=== PATIENT | female | born 2000 | race Caucasian/White ===

== ENCOUNTER 2019-04-12 20:08 | Emergency (ER) | payer OTHER ==
--- NOTE | 2019-04-12 20:56 | EDM.PDOC ---
ED HPI GENERAL MEDICAL PROBLEM - General Chief Complaint: Asthma Stated Complaint: SOB Time Seen by Provider: 04/12/19 20:40 Source of Information: Reports: Patient, Old Records, RN History Limitations: Reports: No Limitations - History of Present Illness INITIAL COMMENTS - FREE TEXT/NARRATIVE: 19 yo female with a pHx of asthma who is a light smoker presents with several days of mild wheezing and mild SOB associated with some pleuritic chest pain. No fever. Cough is nonproductive. Has some clear rhinorrhea. Does not own a peak flow meter. Has albuterol but it is really not helping her much. Onset: Gradual Duration: Day(s):, Waxing/Waning Location: Reports: Chest Quality: Reports: Sharp Severity: Mild Improves with: Reports: Other (shallow breathing) Worsens with: Reports: Breathing (deep) Context: Reports: Other (see HPI) Associated Symptoms: Reports: Cough, Shortness of Breath, Other (pleuritic pain in back). 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) (albuterol) - Related Data Allergies Allergy/AdvReac Type Severity Reaction Status Date / Time No Known Allergies Allergy Verified 04/12/19 20:23 Home Meds: Home Meds Albuterol Sulfate 1 ampule NEB ASDIRECTED PRN 04/12/19 [History] Albuterol [Ventolin HFA] 2 puff IN Q4H PRN 04/12/19 [History] Fluticasone/Salmeterol [Advair Hfa 230-21 Mcg Inhaler] 2 puff IN BID 04/12/19 [ History] Past Medical History HEENT History: Reports: Allergic Rhinitis Respiratory History: Reports: Asthma Neurological History: Reports: Concussion Psychiatric History: Reports: ADHD, Anxiety, Depression, Panic Attack Social & Family History - Tobacco Use Smoking Status *Q: Current Every Day Smoker Years of Tobacco use: 3 Packs/Tins Daily: 0.4 - Recreational Drug Use Recreational Drug Use: Yes Drug Use in Last 12 Months: Yes Recreational Drug Type: Reports: Marijuana/Hashish Recreational Drug Use Frequency: Weekly ED ROS GENERAL - Review of Systems Review Of Systems: See Below Constitutional: Reports: No Symptoms HEENT: Reports: Rhinitis Respiratory: Reports: Shortness of Breath, Pleuritic Chest Pain, Cough. Denies : Wheezing, Sputum, Hemoptysis Cardiovascular: Reports: No Symptoms GI/Abdominal: Reports: No Symptoms : Reports: No Symptoms Skin: Reports: No Symptoms Neurological: Reports: No Symptoms ED EXAM, GENERAL - Physical Exam Exam: See Below Exam Limited By: No Limitations General Appearance: Alert, WD/WN, No Apparent Distress Eye Exam: Bilateral Eye: Normal Inspection Ears: Normal External Exam, Normal Canal, Hearing Grossly Normal, Normal TMs Ear Exam: Bilateral Ear: Auricle Normal, Canal Normal, TM normal Nose: Normal Inspection, No Blood Throat/Mouth: Normal Inspection, Normal Lips, Normal Oropharynx, Normal Voice, No Airway Compromise Head: Atraumatic, Normocephalic Neck: Normal Inspection Respiratory/Chest: No Respiratory Distress, No Accessory Muscle Use, Wheezing ( faint). No: Accessory Muscle Use, Prolonged Expiration Cardiovascular: Regular Rate, Rhythm, No Edema Back Exam: Normal Inspection. No: CVA Tenderness (R), CVA Tenderness (L) Extremities: Normal Inspection, Normal Range of Motion, Non-Tender, No Pedal Edema Neurological: Alert, Oriented, CN II-XII Intact, Normal Cognition, No Motor/ Sensory Deficits Psychiatric: Normal Affect, Normal Mood Skin Exam: Warm, Dry, Intact, Normal Color, No Rash Course - Vital Signs Text/Narrative:: peak flow was about 70% of predicted. Last Recorded V/S: Last Vital Signs Temp 36.2 C 04/12/19 20:35 Pulse 88 04/12/19 20:35 Resp 18 04/12/19 20:35 BP 115/66 04/12/19 20:35 Pulse Ox 97 04/12/19 20:35 - Orders/Labs/Meds Orders: Active Orders 24 hr Category Date Time Status RT Peak Flow Measurement [RC] ASDIRECTED Care 04/12/19 20:50 Active Chest 2V [CR] Stat Exams 04/12/19 20:51 Taken - Radiology Interpretation Free Text/Narrative:: CXR-neg Departure - Departure Time of Disposition: 21:40 Disposition: Home, Self-Care 01 Condition: Fair Clinical Impression: Bronchospasm - Discharge Information *PRESCRIPTION DRUG MONITORING PROGRAM REVIEWED*: Not Applicable *COPY OF PRESCRIPTION DRUG MONITORING REPORT IN PATIENT GEORGINA: Not Applicable Instructions: Asthma, Adult Referrals: PCP,None [Primary Care Provider] - Forms: ED Department Discharge Additional Instructions: Use prednisone as directed. Continue use of your other asthma medications as needed. No smoking or smoke exposure. Recheck with a doctor of your choice early next week, call for an appt. Sepsis Event Note - Evaluation Sepsis Screening Result: No Definite Risk - Focused Exam Vital Signs: Vital Signs Temp Pulse Resp BP Pulse Ox 04/12/19 20:35 36.2 C 88 18 115/66 97 04/12/19 20:19 36.2 C 88 18 115/66 97 Date Exam was Performed: 04/12/19 Time Exam was Performed: 21:39 - My Orders Last 24 Hours: My Active Orders 04/12/19 20:50 RT Peak Flow Measurement [RC] ASDIRECTED 04/12/19 20:51 Chest 2V [CR] Stat - Assessment/Plan Last 24 Hours: My Active Orders 04/12/19 20:50 RT Peak Flow Measurement [RC] ASDIRECTED 04/12/19 20:51 Chest 2V [CR] Stat
--- NOTE | 2019-04-13 08:54 | CR ---
CHEST: 2 view CLINICAL HISTORY:Pleuritic chest pain, SOB COMPARISON:None FINDINGS: The heart size, pulmonary vascularity and hilar structures are normal. No infiltrate effusion or pneumothorax is seen. IMPRESSION: No acute cardiopulmonary process.
== END 2019-04-12 21:53 | disposition home or self-care (01) ==
LOC: JP.ED 20:08
DX: J98.01 Acute bronchospasm (principal); F17.210 Nicotine dependence, cigarettes, uncomplicated
CPT/HCPCS: 71046; 71046-26; 99284-25

== ENCOUNTER 2020-05-23 00:42 | Inpatient (IN) | payer OTHER ==
[2020-05-23] MEDS ORDERED: Albuterol/Ipratropium 3.0-0.5 MG/3 ML Neb Soln NEB ONE ×2 (01:00→01:44)
[2020-05-23] MEDS ORDERED: methylPREDNISolone Sodium Succinate 125 MG/2 ML SDV IM ONE (01:00)
--- NOTE | 2020-05-23 01:05 | EDM.PDOC ---
ED HPI GENERAL MEDICAL PROBLEM - General Chief Complaint: Respiratory Problem Stated Complaint: SOB Time Seen by Provider: 05/23/20 00:55 Source of Information: Reports: Patient History Limitations: Reports: No Limitations - History of Present Illness INITIAL COMMENTS - FREE TEXT/NARRATIVE: Alida is a 20-year-old female presenting to the ED for acute onset of wheezing and shortness of breath. 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 Patient states that she had onset of symptoms around 1800 hrs. today and has been using her inhaler without any improvement. Patient is on Advair and Proventil. She has not been on steroids since she had bronchitis last fall. Denies any fever, chills but has had a non-productive cough to the point of posttussive emesis. - Related Data Allergies Allergy/AdvReac Type Severity Reaction Status Date / Time No Known Allergies Allergy Verified 04/12/19 20:23 Home Meds: Home Meds Albuterol Sulfate 1 ampule NEB ASDIRECTED PRN 04/12/19 [History] Albuterol [Ventolin HFA] 2 puff IN Q4H PRN 04/12/19 [History] Fluticasone Propion/Salmeterol [Advair Hfa 230-21 Mcg Inhaler] 2 puff IN BID 04/12/19 [History] Past Medical History HEENT History: Reports: Allergic Rhinitis Respiratory History: Reports: Asthma Neurological History: Reports: Concussion Psychiatric History: Reports: ADHD, Anxiety, Depression, Panic Attack ED ROS GENERAL - Review of Systems Review Of Systems: See Below Constitutional: Reports: No Symptoms HEENT: Reports: No Symptoms Respiratory: Reports: Shortness of Breath, Wheezing, Cough, Other (Posttussive emesis) Cardiovascular: Reports: No Symptoms Endocrine: Reports: No Symptoms GI/Abdominal: Reports: Vomiting (Posttussive) : Reports: No Symptoms Musculoskeletal: Reports: No Symptoms Skin: Reports: No Symptoms Neurological: Reports: No Symptoms Psychiatric: Reports: Anxiety Hematologic/Lymphatic: Reports: No Symptoms Immunologic: Reports: Environmental Allergy (Animal dander) ED EXAM, GENERAL - Physical Exam Exam: See Below Exam Limited By: No Limitations General Appearance: Alert, Anxious, Moderate Distress Eye Exam: Bilateral Eye: EOMI, PERRL Nose: Clear Rhinorrhea Throat/Mouth: Normal Inspection, Normal Oropharynx, Normal Voice, No Airway Compromise Head: Atraumatic, Normocephalic Neck: Normal Inspection, Supple Respiratory/Chest: Decreased Breath Sounds (Moderately diminished breath sounds bilaterally), Wheezing (Scant diffuse wheezing), Accessory Muscle Use Cardiovascular: Normal Peripheral Pulses, Regular Rate, Rhythm, Tachycardia Peripheral Pulses: 2+: Radial (L), Radial (R) Back Exam: Normal Inspection Extremities: Normal Inspection Neurological: Alert, Oriented, Normal Cognition, No Motor/Sensory Deficits Psychiatric: Anxious Skin Exam: Warm, Dry Lymphatic: No Adenopathy Course - Vital Signs Last Recorded V/S: Last Vital Signs Temp 36.4 C 05/23/20 00:57 Pulse 108 H 05/23/20 00:57 Resp 22 H 05/23/20 00:57 BP 116/66 05/23/20 00:57 Pulse Ox 96 05/23/20 00:57 - Orders/Labs/Meds Orders: Active Orders 24 hr Category Date Time Status RT Aerosol Therapy [RC] ASDIRECTED Care 05/23/20 01:01 Active RT Aerosol Therapy [RC] ASDIRECTED Care 05/23/20 01:44 Active Ang Chest [CT] Stat Exams 05/23/20 Ordered Chest 2V [CR] Stat Exams 05/23/20 01:00 Taken COVID-19/FLU A+B/RSV [MOLEC] Stat Lab 05/23/20 02:21 Ordered Labs: Laboratory Tests 05/23/20 05/23/20 05/23/20 Range/Units 01:12 01:12 01:12 WBC 19.1 H (4.5-11.0) K/uL RBC 4.56 (3.30-5.50) M/uL Hgb 13.0 (12.0-15.0) g/dL Hct 38.7 (36.0-48.0) % MCV 85 (80-98) fL MCH 29 (27-31) pg MCHC 34 (32-36) % Plt Count 280 (150-400) K/uL Neut % (Auto) 79 H (36-66) % Lymph % (Auto) 9 L (24-44) % Turner % (Auto) 7 H (2-6) % Eos % (Auto) 4 (2-4) % Baso % (Auto) 0 (0-1) % PT 10.7 (9.5-12.0) sec INR 0.98 (0.80-1.20) APTT 27.2 (27.0-36.0) sec Puncture Site ABG pH (7.350-7.450) ABG pCO2 (35.0-42.0) mmHg ABG pO2 (75.0-100.0) mmHg ABG HCO3 (22.0-26.0) mmol/L ABG Total CO2 (21.0-25.0) mmol/L ABG O2 Saturation (95.0-98.0) % ABG O2 Content (15.0-23.0) %vol ABG Base Excess mm/L ABG Hemoglobin (12.0-16.0) g/dL ABG Oxyhemoglobin % ABG Carboxyhemoglobin (0.0-1.6) % ABG Methemoglobin % [employer] Test O2 Delivery Device Oxygen Flow Rate L Sodium 143 (140-148) mmol/L Potassium 4.2 (3.6-5.2) mmol/L Chloride 105 (100-108) mmol/L Carbon Dioxide 25 (21-32) mmol/L Anion Gap 13.4 (5.0-14.0) mmol/L BUN 16 (7-18) mg/dL Creatinine 0.7 (0.6-1.0) mg/dL Est Cr Clr Drug Dosing 105.16 mL/min Estimated GFR (MDRD) > 60 (>60) Glucose 98 (74-106) mg/dL Calcium 9.1 (8.5-10.1) mg/dL C-Reactive Protein 0.36 H (0.0-0.3) mg/dL 05/23/20 05/23/20 Range/Units 01:56 02:00 WBC (4.5-11.0) K/uL RBC (3.30-5.50) M/uL Hgb (12.0-15.0) g/dL Hct (36.0-48.0) % MCV (80-98) fL MCH (27-31) pg MCHC (32-36) % Plt Count (150-400) K/uL Neut % (Auto) (36-66) % Lymph % (Auto) (24-44) % Turner % (Auto) (2-6) % Eos % (Auto) (2-4) % Baso % (Auto) (0-1) % PT (9.5-12.0) sec INR (0.80-1.20) APTT (27.0-36.0) sec Puncture Site Rt radial Rt radial ABG pH 6.928 L* 6.908 L* (7.350-7.450) ABG pCO2 103.0 H* 99.7 H* (35.0-42.0) mmHg ABG pO2 40.6 L* 101.0 H (75.0-100.0) mmHg ABG HCO3 20.5 L 18.8 L (22.0-26.0) mmol/L ABG Total CO2 21.3 19.6 L (21.0-25.0) mmol/L ABG O2 Saturation 38.7 L 89.2 L (95.0-98.0) % ABG O2 Content 7.8 L 17.4 (15.0-23.0) %vol ABG Base Excess -16.0 -17.5 mm/L ABG Hemoglobin 14.4 13.9 (12.0-16.0) g/dL ABG Oxyhemoglobin 38.3 88.8 % ABG Carboxyhemoglobin < 0.5 < 0.5 (0.0-1.6) % ABG Methemoglobin 0.9 0.7 % [employer] Test Pass Pass O2 Delivery Device Room air Resuscitation bag Oxygen Flow Rate L Sodium (140-148) mmol/L Potassium (3.6-5.2) mmol/L Chloride (100-108) mmol/L Carbon Dioxide (21-32) mmol/L Anion Gap (5.0-14.0) mmol/L BUN (7-18) mg/dL Creatinine (0.6-1.0) mg/dL Est Cr Clr Drug Dosing mL/min Estimated GFR (MDRD) (>60) Glucose (74-106) mg/dL Calcium (8.5-10.1) mg/dL C-Reactive Protein (0.0-0.3) mg/dL Meds: Medications Discontinued Medications Generic Name Dose Route Start Last Admin Trade Name Freq PRN Reason Stop Dose Admin Albuterol/Ipratropium 3 ml 05/23/20 01:00 05/23/20 01:11 Albuterol/Ipratropium 3.0-0.5 Mg/3 Ml Neb Soln NEB 04/08/21 01:01 3 ml ONETIME ONE Administration Albuterol/Ipratropium 3 ml 05/23/20 01:44 Albuterol/Ipratropium 3.0-0.5 Mg/3 Ml Neb Soln NEB 05/23/20 01:45 ONETIME ONE Diphenhydramine HCl 50 mg 05/23/20 02:39 Diphenhydramine 50 Mg/Ml Sdv IVPUSH 05/23/20 02:40 ONETIME ONE Lidocaine HCl/Dextrose Confirm 05/23/20 02:05 Lidocaine 2 Gm/D5w 500 Ml Administered 05/23/20 02:06 Dose 2 gm in 500 mls @ as directed .ROUTE .STK-MED ONE Sodium Chloride 100 mls @ 4 mls/sec 05/23/20 02:12 05/23/20 02:39 Normal Saline IV 05/23/20 02:13 4 mls/sec ASDIRECTED STA Administration Iopamidol 100 ml 05/23/20 02:12 05/23/20 02:39 Iopamidol 755 Mg/Ml 100 Ml Bottle IV 05/23/20 02:13 100 ml . DIRECTED STA Administration Lidocaine HCl Confirm 05/23/20 02:04 Lidocaine 4% Top Soln 50 Ml Bottle Administered 05/23/20 02:05 Dose 50 ml .ROUTE .STK-MED ONE Lidocaine HCl Confirm 05/23/20 02:06 Lidocaine 4% 5 Ml Amp Administered 05/23/20 02:07 Dose 5 ml .ROUTE .STK-MED ONE Lidocaine HCl Confirm 05/23/20 02:07 Lidocaine 2% 20 Ml Mdv Administered 05/23/20 02:08 Dose 20 ml .ROUTE .STK-MED ONE Lorazepam 1 mg 05/23/20 01:44 Lorazepam 1 Mg Tab PO 05/23/20 01:45 ONETIME ONE Methylprednisolone Sodium Succinate 125 mg 05/23/20 01:00 05/23/20 01:11 Methylprednisolone Sodium Succinate 125 Mg/2 Ml Sdv IM 05/23/20 01:01 125 mg ONETIME ONE Administration Ondansetron HCl 4 mg 05/23/20 01:37 Ondansetron 4 Mg Tab.Dis PO 05/23/20 01:38 ONETIME ONE Rocuronium [place] Confirm 05/23/20 01:58 Rocuronium 50 Mg/5 Ml Vial Administered 05/23/20 01:59 Dose 50 mg .ROUTE .STK-MED ONE Sodium Chloride Confirm 05/23/20 02:10 Sodium Chloride 0.9% Inhalation Soln 3 Ml Neb Administered 05/23/20 02:11 Dose 15 ml .ROUTE .STK-MED ONE - Radiology Interpretation Free Text/Narrative:: I reviewed the two-view chest x-ray which is unremarkable for any acute infiltrates. I reviewed the report on the CT angiogram of the chest which was unfortunately nondiagnostic due to poor opacification of the pulmonary artery, however, there was either atelectasis or infiltrate in the lingula in the left lower lobe. - Re-Assessments/Exams Free Text/Narrative Re-Assessment/Exam: 05/23/2020 00:58 patient presents with acute onset of dyspnea with a history of asthma secondary to either exercise-induced or animal dander. Her symptoms started at 1800 hrs. tonight. We started with a DuoNeb and Solu-Medrol 125 mg IM. We will get a chest x-ray two-view and CBC, CRP, and basic metabolic profile. 05/23/20 01:41 patient is becoming acutely more dyspneic in xray and is coughing with vomiting. She is complaining that she cannot breathe. She is starting to become cyanotic. On auscultation she is moving very little air. In addition she is becoming increasingly agitated and combative. 05/23/20 01:51 we started to assist the patient with [id number] resp irations. Patient is on high flow oxygen via nasal cannula and is getting a DuoNeb stacked with an SPO2 of 22% on high flow oxygen. Time we called a code to get more bodies down to the emergency room. We are anticipating the need for RSI as the patient is becoming more agitated and unresponsive. Such from a DuoNeb to lidocaine 4% nebulized and high flow nasal cannula at 15 L/min. An blood gas was obtained showing a pH of 6.9 with a PCO2 of 103 and a PO2 of 41. Thinking that this may have been a venous stick was repeated with the similar results with the PCO2 of 99.4 and the PO2 was up to 101 because of [id number] ventilation on high flow oxygen. Again we prepared to RSI the patient, however, she started to improve both with her oxygenation and mentation on the lidocaine 4% nebulized treatment. She also started to move much more air and had improvement in both her heart rate and her blood pressure. The concern is possibility of a pulmonary embolism so we proceeded with a CT of the chest with contrast. Again because of the improvement we did not RSI or intubate the patient. She is currently doing somewhat better with audible wheezes now and improved SPO2. We will repeat the ABG at this time. 05/23/20 02:37 I was notified by nursing that the patient now has a urticarial type rash on the chest and abdomen. This is likely stress-induced or cholinergic in nature. She was given diphenhydramine 50 mg IV push. 05/23/20 03:00 I discussed the case with Dr. Ribeiro who believes that with the turnaround, the patient probably does not need to be in the unit but does agree with hospitalization. I talked with Annia Epperson CNP who will arrange for admission of the patient for further care. 05/23/20 03:11 Covid test, RSV, and influenza tests are negative. 05/23/20 03:13 repeat ABG has significantly improved with a pH of 7.38, PCO2 of 35, PO2 of 94 and a bicarb of 20.4. This was on 8 L nasal cannula. Departure - Departure Time of Disposition: 03:14 Disposition: Admitted As Inpatient 65 Condition: Serious Clinical Impression: Bronchopneumonia Status asthmaticus Qualifiers: Asthma severity: severe Asthma persistence: persistent Qualified Code(s): J45.52 - Severe persistent asthma with status asthmaticus - Discharge Information Referrals: PCP,None [Primary Care Provider] - Forms: ED Department Discharge Critical Care Note - Critical Care Note Total Time (mins): 30 Comments: Critical care time of 30 minutes in management of acute respiratory failure with hypoxia and hypercapnia, excluding procedures. Sepsis Event Note (ED) - Evaluation Sepsis Screening Result: No Definite Risk - Focused Exam Vital Signs: Vital Signs Temp Pulse Resp BP Pulse Ox 05/23/20 00:57 36.4 C 108 H 22 H 116/66 96 - Problem List & Annotations (1) Status asthmaticus SNOMED Code(s): 906010042 Code(s): J45.902 - UNSPECIFIED ASTHMA WITH STATUS ASTHMATICUS Status: Acute Current Visit: Yes Qualifiers: Asthma severity: severe Asthma persistence: persistent Qualified Code(s): J45.52 - Severe persistent asthma with status asthmaticus (2) Bronchopneumonia SNOMED Code(s): 552007567 Code(s): J18.0 - BRONCHOPNEUMONIA, UNSPECIFIED ORGANISM Status: Acute Priority: High Current Visit: Yes - Problem List Review Problem List Initiated/Reviewed/Updated: Yes - My Orders Last 24 Hours: My Active Orders 05/23/20 Ang Chest [CT] Stat 05/23/20 01:00 Chest 2V [CR] Stat 05/23/20 01:01 RT Aerosol Therapy [RC] ASDIRECTED 05/23/20 01:44 RT Aerosol Therapy [RC] ASDIRECTED 05/23/20 02:21 COVID-19/FLU A+B/RSV [MOLEC] Stat - Assessment/Plan Last 24 Hours: My Active Orders 05/23/20 Ang Chest [CT] Stat 05/23/20 01:00 Chest 2V [CR] Stat 05/23/20 01:01 RT Aerosol Therapy [RC] ASDIRECTED 05/23/20 01:44 RT Aerosol Therapy [RC] ASDIRECTED 05/23/20 02:21 COVID-19/FLU A+B/RSV [MOLEC] Stat
[2020-05-23] MEDS ORDERED: Ondansetron 4 MG Tab.DIS PO ONE (01:37)
[2020-05-23] MEDS ORDERED: LORazepam 1 MG Tab PO ONE (01:44)
[2020-05-23] MEDS ORDERED: Rocuronium 50 MG/5 ML Vial ONE (01:58)
[2020-05-23] MEDS ORDERED: Lidocaine 4% Top Soln 50 ML Bottle ONE (02:04)
[2020-05-23] MEDS ORDERED: LIDOCAINE ONE (02:05)
[2020-05-23] MEDS ORDERED: [UNRECOGNIZED DRUG - OTHER] ONE (02:05)
[2020-05-23] MEDS ORDERED: Lidocaine 4% 5 ML Amp ONE (02:06)
[2020-05-23] MEDS ORDERED: Lidocaine 2% 20 ML MDV ONE (02:07)
[2020-05-23] MEDS ORDERED: Sodium Chloride 0.9% Inhalation Soln 3 ML Neb ONE (02:10)
[2020-05-23] MEDS ORDERED: Sodium Chloride 0.9% 100 ML IV STA (02:12)
[2020-05-23] MEDS ORDERED: Iopamidol 755 Mg/ML 100 ML Bottle IV STA (02:12)
[2020-05-23] MEDS ORDERED: diphenhydrAMINE 50 MG/ML SDV IVPUSH ONE (02:39)
[2020-05-23] MEDS ORDERED: diphenhydrAMINE 50 MG/ML SDV ONE (02:40)
[2020-05-23 03:02] LABS: CORONAVIRUS COVID-19 NAA NEGATIVE (NEGATIVE)
--- NOTE | 2020-05-23 03:11 | CRLCT ---
INDICATION: Shortness of breath and respiratory distress. TECHNIQUE: CT chest PE was acquired with 100 cc Isovue 370 intravenous contrast. COMPARISON: None. FINDINGS: Heart and vasculature: Nondiagnostic evaluation. Inadequate opacification of the pulmonary vasculature centrally and in the upper lobes some improved opacification within the lower lobes the pulmonary vasculature appears unremarkable at no pericardial effusion. Thoracic aorta normal in caliber. This level. Lungs and pleural: No pleural effusion or pneumothorax. Mild ground-glass opacity within the lingula. Lymph nodes/mediastinum: No mediastinal, hilar, or axillary adenopathy. Chest wall: No masses. Upper abdomen: Normal. Bones: Unremarkable for age. IMPRESSION: 1. Nondiagnostic evaluation for the detection of pulmonary emboli secondary to breathing during the examination. However, contrast bolus is adequate at the level of the bilateral lower lobes and no emboli are identified within these areas. 2. Mild ground-glass opacity within the lingula. This is nonspecific and the differential is broad including subsegmental atelectasis, pneumonitis or viral pneumonia. Please note that all CT scans at this facility use dose modulation, iterative reconstruction, and/or weight-based dosing when appropriate to reduce radiation dose to as low as reasonably achievable. Dictated by Calvin Aponte MD @ May 23 2020 3:05AM Signed by Dr. Calvin Aponte @ May 23 2020 3:10AM
[2020-05-23] MEDS ORDERED: Levofloxacin/Dextrose 5%-Water 750 MG in Premix Bag 1 BAG IV ONE (03:17)
[2020-05-23] MEDS ORDERED: Lidocaine 4% 5 ML Amp NEB ONE (03:21)
[2020-05-23] MEDS ORDERED: Sodium Chloride 0.9% Inhalation Soln 3 ML Neb INH ONE (03:23)
[2020-05-23] MEDS ORDERED: Sodium Chloride 0.9% 1,000 ML IV SCH (04:09)
[2020-05-23] MEDS ORDERED: Albuterol 0.083% 2.5 MG/3 ML Neb Soln NEB PRN (04:09)
[2020-05-23] MEDS ORDERED: Acetaminophen 325 MG Tab PO PRN (04:09)
[2020-05-23] MEDS ORDERED: diphenhydrAMINE 25 MG Cap PO PRN (04:09)
[2020-05-23] MEDS ORDERED: Ondansetron 4 MG Tab.DIS PO PRN (04:09)
[2020-05-23] MEDS ORDERED: Morphine 2 MG/ML SYRINGE IVPUSH PRN (04:09)
[2020-05-23] MEDS ORDERED: Ondansetron 4 MG/2 ML SDV IV PRN (04:09)
[2020-05-23] MEDS ORDERED: LORazepam 2 MG/ML SDV IV PRN (04:09)
[2020-05-23] MEDS ORDERED: Docusate Sodium 100 MG Cap PO PRN (04:09)
[2020-05-23] MEDS ORDERED: oxyCODONE 5 MG Tab PO PRN (04:09)
--- NOTE | 2020-05-23 04:42 | PCM.HP.2 ---
H&P History of Present Illness - General Date of Service: 05/23/20 Admit Problem/Dx: Admission Diagnosis/Problem Admission Diagnosis/Problem Asthma with status asthmaticus Source of Information: Patient History Limitations: Reports: No Limitations - History of Present Illness Initial Comments - Free Text/Narative: chief complaint: shortness of breath- asthma attack Alida is a 20-year-old female presenting to the ED for acute onset of wheezing and shortness of breath. 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 Patient states that she had onset of symptoms around 1800 hrs. today and has been using her inhaler without any improvement. Patient is on Advair and Proventil. She has not been on steroids since she had bronchitis last fall. Denies any fever, chills but has had a non-productive cough to the point of posttussive emesis. Onset of Symptoms: Reports: Today Symptom Onset Date: 05/22/20 Symptom Onset Time: 18:00 Duration of Symptoms: Reports: Constant, Getting Worse, Other (all respiratory symptoms resolved prior to admission) Location: Reports: Chest Quality: Reports: Same as Previous Episode (had similar asthma attack last January- but not as bad as today) Severity: Severe Improves with: Reports: Medication Worsens with: Reports: None Associated Symptoms: Reports: Cough, Nausea/Vomiting - Related Data Allergies/Adverse Reactions: Allergies Allergy/AdvReac Type Severity Reaction Status Date / Time No Known Allergies Allergy Verified 04/12/19 20:23 Home Medications: Home Meds Albuterol Sulfate 1 ampule NEB ASDIRECTED PRN 04/12/19 [History] Albuterol [Ventolin HFA] 2 puff IN Q4H PRN 04/12/19 [History] Fluticasone Propion/Salmeterol [Advair Hfa 230-21 Mcg Inhaler] 2 puff IN BID 04/12/19 [History] Past Medical History HEENT History: Reports: Allergic Rhinitis Respiratory History: Reports: Asthma Neurological History: Reports: Concussion Psychiatric History: Reports: ADHD, Anxiety, Depression, Panic Attack - Infectious Disease History Infectious Disease History: Reports: None Social & Family History - Tobacco Use Tobacco Use Status *Q: Current Every Day Tobacco User Years of Tobacco use: 3 Packs/Tins Daily: 1 Second Hand Smoke Exposure: Yes - Caffeine Use Caffeine Use: Reports: Coffee, Energy Drinks, Soda, Tea - Recreational Drug Use Recreational Drug Use: Yes Recreational Drug Type: Reports: Marijuana/Hashish - Living Situation & Occupation Living situation: Reports: Single, with Significant Other Occupation: Employed (lives in [place], [place]. with her Boyfriend. 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) H&P Review of Systems - Review of Systems: Review Of Systems: See Below General: Reports: No Symptoms, Other (now reports feeling pretty good, no concerns with breathing, cough or chest tightness) HEENT: Reports: No Symptoms Pulmonary: Reports: Shortness of Breath (in ER-now has resolved) Cardiovascular: Reports: No Symptoms Gastrointestinal: Reports: No Symptoms Genitourinary: Reports: No Symptoms Skin: Reports: No Symptoms Psychiatric: Reports: No Symptoms Neurological: Reports: No Symptoms Hematologic/Lymphatic: Reports: No Symptoms Immunologic: Reports: Other (animal dander- has 3 dogs and a snake) Exam - Exam Exam: See Below - Vital Signs Vital Signs: Last Vital Signs Temp 97.6 F 05/23/20 00:57 Pulse 122 H 05/23/20 03:51 Resp 14 05/23/20 03:51 BP 97/55 L 05/23/20 03:51 Pulse Ox 99 05/23/20 03:51 Weight: 211 lb 11.2 oz - Exam General: Alert, Oriented, Cooperative, Other (neat and well groomed, talkative, pleasant) HEENT: PERRLA, Hearing Intact, Mucosa Moist & [place], Nares Patent, Normal Nasal Septum, Posterior Pharynx Clear, Conjunctiva Clear, EOMI, EACs Clear, TMs Clear Neck: Supple, Trachea Midline, 2 Lungs: Clear to Auscultation, Normal Respiratory Effort Cardiovascular: Regular Rate, Regular Rhythm GI/Abdominal Exam: Normal Bowel Sounds, Soft, Non-Tender, No Organomegaly, No Distention, No Abnormal Bruit, No Mass, Pelvis Stable (Female) Exam: Deferred Rectal (Female) Exam: Deferred Back Exam: Normal Inspection, Full Range of Motion, NT Extremities: Normal Inspection, Normal Range of Motion, Non-Tender, No Pedal Edema, Normal Capillary Refill Skin: Warm, Dry, Intact Neurological: Cranial Nerves Intact, Reflexes Equal Bilateral Neuro Extensive - Mental Status: Alert, Oriented x3, Normal Mood/Affect, Normal Cognition Neuro Extensive - Motor, Sensory, Reflexes: CN II-XII Intact, Normal Gait, Normal Reflexes Psychiatric: Alert, Normal Affect, Normal Mood - Patient Data Lab Results Last 24 hrs: Laboratory Results - last 24 hr 05/23/20 05/23/20 05/23/20 Range/Units 01:12 01:12 01:12 WBC 19.1 H (4.5-11.0) K/uL RBC 4.56 (3.30-5.50) M/uL Hgb 13.0 (12.0-15.0) g/dL Hct 38.7 (36.0-48.0) % MCV 85 (80-98) fL MCH 29 (27-31) pg MCHC 34 (32-36) % Plt Count 280 (150-400) K/uL Neut % (Auto) 79 H (36-66) % Lymph % (Auto) 9 L (24-44) % Frontier % (Auto) 7 H (2-6) % Eos % (Auto) 4 (2-4) % Baso % (Auto) 0 (0-1) % PT 10.7 (9.5-12.0) sec INR 0.98 (0.80-1.20) APTT 27.2 (27.0-36.0) sec Puncture Site ABG pH (7.350-7.450) ABG pCO2 (35.0-42.0) mmHg ABG pO2 (75.0-100.0) mmHg ABG HCO3 (22.0-26.0) mmol/L ABG Total CO2 (21.0-25.0) mmol/L ABG O2 Saturation (95.0-98.0) % ABG O2 Content (15.0-23.0) %vol ABG Base Excess mm/L ABG Hemoglobin (12.0-16.0) g/dL ABG Oxyhemoglobin % ABG Carboxyhemoglobin (0.0-1.6) % ABG Methemoglobin % Isrrael Test O2 Delivery Device Oxygen Flow Rate L Sodium 143 (140-148) mmol/L Potassium 4.2 (3.6-5.2) mmol/L Chloride 105 (100-108) mmol/L Carbon Dioxide 25 (21-32) mmol/L Anion Gap 13.4 (5.0-14.0) mmol/L BUN 16 (7-18) mg/dL Creatinine 0.7 (0.6-1.0) mg/dL Est Cr Clr Drug Dosing 105.16 mL/min Estimated GFR (MDRD) > 60 (>60) Glucose 98 (74-106) mg/dL Calcium 9.1 (8.5-10.1) mg/dL C-Reactive Protein 0.36 H (0.0-0.3) mg/dL Influenza Type A RNA (NEGATIVE) RSV RNA (INAAT) (NEGATIVE) Influenza Type B RNA (NEGATIVE) SARS-CoV-2 RNA (JAYDA) (NEGATIVE) 05/23/20 05/23/20 05/23/20 Range/Units 01:56 02:00 02:21 WBC (4.5-11.0) K/uL RBC (3.30-5.50) M/uL Hgb (12.0-15.0) g/dL Hct (36.0-48.0) % MCV (80-98) fL MCH (27-31) pg MCHC (32-36) % Plt Count (150-400) K/uL Neut % (Auto) (36-66) % Lymph % (Auto) (24-44) % Frontier % (Auto) (2-6) % Eos % (Auto) (2-4) % Baso % (Auto) (0-1) % PT (9.5-12.0) sec INR (0.80-1.20) APTT (27.0-36.0) sec Puncture Site Rt radial Rt radial ABG pH 6.928 L* 6.908 L* (7.350-7.450) ABG pCO2 103.0 H* 99.7 H* (35.0-42.0) mmHg ABG pO2 40.6 L* 101.0 H (75.0-100.0) mmHg ABG HCO3 20.5 L 18.8 L (22.0-26.0) mmol/L ABG Total CO2 21.3 19.6 L (21.0-25.0) mmol/L ABG O2 Saturation 38.7 L 89.2 L (95.0-98.0) % ABG O2 Content 7.8 L 17.4 (15.0-23.0) %vol ABG Base Excess -16.0 -17.5 mm/L ABG Hemoglobin 14.4 13.9 (12.0-16.0) g/dL ABG Oxyhemoglobin 38.3 88.8 % ABG Carboxyhemoglobin < 0.5 < 0.5 (0.0-1.6) % ABG Methemoglobin 0.9 0.7 % Isrrael Test Pass Pass O2 Delivery Device Room air Resuscitation bag Oxygen Flow Rate L Sodium (140-148) mmol/L Potassium (3.6-5.2) mmol/L Chloride (100-108) mmol/L Carbon Dioxide (21-32) mmol/L Anion Gap (5.0-14.0) mmol/L BUN (7-18) mg/dL Creatinine (0.6-1.0) mg/dL Est Cr Clr Drug Dosing mL/min Estimated GFR (MDRD) (>60) Glucose (74-106) mg/dL Calcium (8.5-10.1) mg/dL C-Reactive Protein (0.0-0.3) mg/dL Influenza Type A RNA Negative (NEGATIVE) RSV RNA (INAAT) Negative (NEGATIVE) Influenza Type B RNA Negative (NEGATIVE) SARS-CoV-2 RNA (JAYDA) Negative (NEGATIVE) 05/23/20 Range/Units 03:07 WBC (4.5-11.0) K/uL RBC (3.30-5.50) M/uL Hgb (12.0-15.0) g/dL Hct (36.0-48.0) % MCV (80-98) fL MCH (27-31) pg MCHC (32-36) % Plt Count (150-400) K/uL Neut % (Auto) (36-66) % Lymph % (Auto) (24-44) % Frontier % (Auto) (2-6) % Eos % (Auto) (2-4) % Baso % (Auto) (0-1) % PT (9.5-12.0) sec INR (0.80-1.20) APTT (27.0-36.0) sec Puncture Site Rt radial ABG pH 7.384 (7.350-7.450) ABG pCO2 35.0 (35.0-42.0) mmHg ABG pO2 94.0 (75.0-100.0) mmHg ABG HCO3 20.4 L (22.0-26.0) mmol/L ABG Total CO2 18.4 L (21.0-25.0) mmol/L ABG O2 Saturation 96.9 (95.0-98.0) % ABG O2 Content 17.2 (15.0-23.0) %vol ABG Base Excess -3.5 mm/L ABG Hemoglobin 12.7 (12.0-16.0) g/dL ABG Oxyhemoglobin 95.6 % ABG Carboxyhemoglobin 0.7 (0.0-1.6) % ABG Methemoglobin 0.6 % Isrrael Test Pass O2 Delivery Device Hi flow nasal cannu Oxygen Flow Rate 10.0 L Sodium (140-148) mmol/L Potassium (3.6-5.2) mmol/L Chloride (100-108) mmol/L Carbon Dioxide (21-32) mmol/L Anion Gap (5.0-14.0) mmol/L BUN (7-18) mg/dL Creatinine (0.6-1.0) mg/dL Est Cr Clr Drug Dosing mL/min Estimated GFR (MDRD) (>60) Glucose (74-106) mg/dL Calcium (8.5-10.1) mg/dL C-Reactive Protein (0.0-0.3) mg/dL Influenza Type A RNA (NEGATIVE) RSV RNA (INAAT) (NEGATIVE) Influenza Type B RNA (NEGATIVE) SARS-CoV-2 RNA (JAYDA) (NEGATIVE) Result Diagrams: 05/23/20 01:12 05/23/20 01:12 Sepsis Event Note - Evaluation Sepsis Screening Result: Sepsis Risk - Focused Exam Vital Signs: Vital Signs Temp Pulse Resp BP Pulse Ox 05/23/20 03:51 122 H 14 97/55 L 99 05/23/20 02:42 122 H 18 114/57 L 99 05/23/20 00:57 97.6 F 108 H 22 H 116/66 96 - Problem List (1) Status asthmaticus SNOMED Code(s): 082348283 ICD Code: J45.902 - UNSPECIFIED ASTHMA WITH STATUS ASTHMATICUS Status: Acute Priority: High Current Visit: Yes Qualifiers: Asthma severity: severe Asthma persistence: persistent Qualified Code(s): J45.52 - Severe persistent asthma with status asthmaticus (2) Bronchopneumonia SNOMED Code(s): 125283045 ICD Code: J18.0 - BRONCHOPNEUMONIA, UNSPECIFIED ORGANISM Status: Acute Priority: High Current Visit: Yes (3) Vaping nicotine dependence, tobacco product SNOMED Code(s): 80510631, 983161385, 115240254, 647538771 ICD Code: F17.290 - NICOTINE DEPENDENCE, OTHER TOBACCO PRODUCT, UNCOMPLICATED Status: Acute Priority: High Current Visit: Yes Problem List Initiated/Reviewed/Updated: Yes Orders Last 24hrs: Active Orders 24 hr Category Date Time Status Ambulate [RC] QID Care 05/23/20 04:09 Active Intake and Output [RC] QSHIFT Care 05/23/20 04:09 Active Notify Provider Vital Signs [RC] ASDIRECTED Care 05/23/20 04:09 Active Oxygen Therapy [RC] PRN Care 05/23/20 04:09 Active Pulse Oximetry [RC] CONTINUOUS Care 05/23/20 04:09 Active RT Aerosol Therapy [RC] ASDIRECTED Care 05/23/20 04:09 Active Up ad [place] [RC] ASDIRECTED Care 05/23/20 04:09 Active VTE/DVT Education [RC] Per Unit Routine Care 05/23/20 04:09 Active Vital Signs [RC] Q4H Care 05/23/20 04:09 Active Regular Diet [DIET] Diet 05/23/20 Breakfast Active Chest 2V [CR] Stat Exams 05/23/20 01:00 Taken HCG QUALITATIVE,URINE [URCHEM] Urgent Lab 05/23/20 04:09 Ordered UA W/MICROSCOPIC [URIN] Urgent Lab 05/23/20 04:09 Ordered Acetaminophen [TylenoL] Med 05/23/20 04:09 Active 650 mg PO Q4H PRN Albuterol [Proventil Neb Soln] Med 05/23/20 04:09 Active 2.5 mg NEB Q4H PRN Albuterol/Ipratropium [DuoNeb 3.0-0.5 MG/3 ML] Med 05/23/20 06:00 Active 3 ml NEB QID Docusate Sodium [Colace] Med 05/23/20 04:09 Active 100 mg PO BID PRN LORazepam [Ativan] Med 05/23/20 04:09 Active 1 mg IV Q6H PRN Levofloxacin/Dextrose 5%-Water [Levaquin in D5W 500 MG/ Med 05/23/20 21:00 Active 100 ML] 500 mg Premix Bag 1 bag IV Q24H Levofloxacin/Dextrose 5%-Water [Levaquin in D5W 750 MG/ Med 05/23/20 03:17 Active 150 ML] 750 mg Premix Bag 1 bag IV ONETIME Morphine Med 05/23/20 04:09 Active 2 mg IVPUSH Q2H PRN Nicotine [Habitrol] Med 05/23/20 09:00 Active 14 mg TRDERM DAILY Ondansetron [Zofran ODT] Med 05/23/20 04:09 Active 4 mg PO Q6H PRN Ondansetron [Zofran] Med 05/23/20 04:09 Active 4 mg IV Q4H PRN Sodium Chloride 0.9% [Normal Saline] 1,000 ml Med 05/23/20 04:09 Active IV ASDIRECTED diphenhydrAMINE [Benadryl] Med 05/23/20 04:09 Active 25 mg PO BEDTIME PRN methylPREDNISolone Sod Succ [Solu-MEDROL] Med 05/23/20 06:00 Active 40 mg IVPUSH Q6H oxyCODONE Med 05/23/20 04:09 Active 5 mg PO Q4H PRN Resuscitation Status Routine Resus Stat 05/23/20 03:54 Ordered Medication Orders Acetaminophen (Acetaminophen 325 Mg Tab) 650 mg PO Q4H PRN PRN Reason: Pain (Mild 1-3)/fever Albuterol (Albuterol 0.083% 2.5 Mg/3 Ml Neb Soln) 2.5 mg NEB Q4H PRN PRN Reason: Shortness Of Breath/wheezing Albuterol/Ipratropium (Albuterol/Ipratropium 3.0-0.5 Mg/3 Ml Neb Soln) 3 ml NEB QID JOSEPH Diphenhydramine HCl (Diphenhydramine 25 Mg Cap) 25 mg PO BEDTIME PRN PRN Reason: Insomnia Docusate Sodium (Docusate Sodium 100 Mg Cap) 100 mg PO BID PRN PRN Reason: Constipation Levofloxacin/Dextrose 750 mg/ (Premix) 150 mls @ 100 mls/hr IV ONETIME ONE Stop: 05/23/20 04:46 Last Admin: 05/23/20 03:21 Dose: 100 mls/hr Documented by: CAM Levofloxacin/Dextrose 500 mg/ (Premix) 100 mls @ 100 mls/hr IV Q24H [facility] Sodium Chloride (Normal Saline) 1,000 mls @ 125 mls/hr IV ASDIRECTED [facility] Lorazepam (Lorazepam 2 Mg/Ml Sdv) 1 mg IV Q6H PRN PRN Reason: Nausea/Vomiting Methylprednisolone Sodium Succinate (Methylprednisolone Sodium Succinate 40 Mg/1 Ml Sdv) 40 mg IVPUSH Q6H JOSEPH Morphine Sulfate (Morphine 2 Mg/Ml Syringe) 2 mg IVPUSH Q2H PRN PRN Reason: Pain (severe 7-10) Nicotine (Nicotine 14 Mg/24 Hr Patch) 14 mg TRDERM DAILY JOSEPH Ondansetron HCl (Ondansetron 4 Mg Tab.Dis) 4 mg PO Q6H PRN PRN Reason: Nausea able to take PO Ondansetron HCl (Ondansetron 4 Mg/2 Ml Sdv) 4 mg IV Q4H PRN PRN Reason: Nausea/Vomiting Oxycodone HCl (Oxycodone 5 Mg Tab) 5 mg PO Q4H PRN PRN Reason: Pain (moderate 4-6) Assessment/Plan Comment:: ASSESSMENT AND PLAN ; asthma exacerbation and pneumonia. This is a 20 year old female who present to the ER at 12:45 this morning. She reports an asthma attack started at 6 pm this evening, her breathing has gotten progressively worse, while in the ER, Alida had acute onset respiratory failure with oxygen sat at 22% and was cyanotic and unresponsive. Aggressive respiratory treatments given bag valve mask, back to back nebulizer, Lidocaine 4% nebulizer and her symptom improved before RSI could be completed. Upon admission her symptoms have resolved and she reports she is feeling pretty good. no complaints at this time. Oxygen sat 95% on room air. ASTHMA EXACERBATION -Albuteral Nebulizer therapy as needed -Duo-nebs scheduled every 6 hours -Supplemental oxygen as needed -Solu-Medrol 40 mg IV every 8 hours -IV fluids for hydration Normal Saline 125 ml/hr. PNEUMONIA-. -Antibiotic coverage with IV Levaquin 500 mg daily -Supplement oxygen as needed -Symptomatic management of cough Tobacco use- discussed quitting vaping -Nicotine patch 21 mg daily Maintenance issues - - DVT prophylaxis -ambulate - GI prophylaxis -PPI - Nutrition -regular - Amaya catheter -not indicated CODE STATUS -FULL Admission justification -this patient will be admitted for inpatient services and is medically appropriate meeting medical necessity for inpatient admission as outlined in my documentation. I reasonably expect the patient will require inpatient services that span a period time over 2 midnights. I reasonably expect this patient to be discharged or transferred within 96 hours after admission to the [facility]. Disposition -I would anticipate discharge back to home with S.O. after the hospital stay Primary care physician - Dr Pollock, [place], [place]. HOSPITALIST- Dante Ribeiro M.D. - Mortality Measure Prognosis:: Good - Mortality Measure Prognosis:: Good
[2020-05-23] MEDS ORDERED: Nicotine 14 MG/24 Hr Patch ONE (04:46)
[2020-05-23] MEDS: Nicotine 14 MG/24 Hr Patch TRDERM SCH ×2 (04:50→09:56)
[2020-05-23] MEDS ORDERED: Albuterol/Ipratropium 3.0-0.5 MG/3 ML Neb Soln NEB SCH ×2 (06:00→11:00)
[2020-05-23] MEDS ORDERED: methylPREDNISolone Sodium Succinate 40 MG/1 ML SDV IVPUSH SCH (06:00)
--- NOTE | 2020-05-23 09:37 | PCM.DCSUM1 ---
Discharge Summary - Hospital Course Brief History: 20-year-old female with history of severe persistent asthma and tobacco dependence who presented with acute and rapid worsening of respiratory status. She was admitted for management of an exacerbation of asthma due to left lower lung pneumonia. Diagnosis: Stroke: No - Discharge Data Discharge Date: 05/23/20 Discharge Disposition: Home, Self-Care 01 Condition: Good - Referral to Home Health Primary Care Physician: PCP None - Discharge Diagnosis/Problem(s) (1) Left lower lobe pneumonia SNOMED Code(s): 500722418 ICD Code: J18.9 - PNEUMONIA, UNSPECIFIED ORGANISM Status: Acute Qualifiers: Pneumonia type: due to unspecified organism Qualified Code(s): J18.9 - Pneumonia, unspecified organism (2) Status asthmaticus SNOMED Code(s): 948898709 ICD Code: J45.902 - UNSPECIFIED ASTHMA WITH STATUS ASTHMATICUS Status: Acute Priority: High Qualifiers: Asthma severity: severe Asthma persistence: persistent Qualified Code(s): J45.52 - Severe persistent asthma with status asthmaticus (3) Acute respiratory failure with hypoxia and hypercapnia SNOMED Code(s): 606546047 ICD Code: J96.01 - ACUTE RESPIRATORY FAILURE WITH HYPOXIA; J96.02 - ACUTE RESPIRATORY FAILURE WITH HYPERCAPNIA Status: Acute (4) Tobacco dependence SNOMED Code(s): 04150187 ICD Code: F17.200 - NICOTINE DEPENDENCE, UNSPECIFIED, UNCOMPLICATED Status: Chronic - Patient Summary/Data Hospital Course: Alida presented to the emergency room with progressive cough and dyspnea. She was worsening despite multiple uses of her inhaler and nebulizer at home. Work- up in the emergency room revealed significant respiratory distress on examination and concern for impending respiratory failure. Laboratory studies revealed severe respiratory acidosis with a PCO2 of greater than 100 and a pH of less than 7. The patient was given multiple nebulizer treatments, IV steroids and unfortunately was not improving. Repeat blood gases showed only mild improvement with high flow nasal cannula. Ultimately she did receive nebulized lidocaine and had a fairly significant improvement in her respiratory status at that time. Serial blood gases showed normalization of her pH and PCO2. A CT scan of the chest abdomen and pelvis was obtained and showed a small left lower lobe infiltrate near the lingula. There is no evidence for pulmonary embolism or mass. The patient was admitted to the hospital for further management with severe asthma exacerbation and probable left lower lung pneumonia. Antibiotic coverage was with levofloxacin. She was on scheduled IV steroids overnight. By the morning after admission she was dramatically improved. She was no longer requiring supplemental oxygen. Her wheezing had completely resolved. She was not in any distress and was able to walk around the unit without any dyspnea or hypoxia. At this point the patient was requesting to go home. Given her rapid clinical improvement I did not see a strong indication to keep her here in the hospital. I suspect the small left lung pneumonia was the trigger for her exacerbation though it is noted that she continues to smoke cigarettes and use a vaping device. These certainly could be contributing as well and may have been the main culprit in her exacerbation. We did talk about the risks of tobacco use and vaping. We talked about the benefits of quitting smoking and vaping. We discussed potential treatment options. She has previously tried Chantix with success but severe side effects that she could not tolerate. She was interested in trying nicotine patches. I did also give her some information about smoking cessation and [place] quit plan. She will be discharged home to complete a prednisone burst as well as a 5-day course of a azithromycin. 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 She will be discharged home with steroids, antibiotics nicotine patches and close follow-up. Patient was admitted to the hospital under inpatient status given the severity of her presentation with severe respiratory failure with hypoxia and hypercapnia. She had a severe respiratory acidosis and nearly required intubation. She improved quite dramatically and was ready for discharge far faster than expected based on her clinical condition at the time of admission. - Patient Instructions Diet: Regular Diet as Tolerated Activity: As Tolerated Activity, Other: May return to work 05/25 without restrictions Driving: May Drive Today Showering/Bathing: May Shower Other/Special Instructions: 1. You were in the hospital for management of a severe asthma exacerbation with retention of carbon dioxide and significant impairment in oxygen exchange. I suspect the trigger for the asthma exacerbation was a small pneumonia in your left lung. Your condition has improved with therapies provided in the emergency room and intensive care unit. I recommend additional antibiotic therapy with azithromycin. Please take 500 mg daily for 4 days starting tomorrow. I also recommend additional steroid therapy. Please take prednisone 40 mg daily for 4 days starting tomorrow morning. Continue to use your prior to admission medications including the inhaler and nebulizer. 2. It is extremely important that you quit smoking and quit vaping. Both of these can be triggers for the asthma and worsen your lung function. They have other health risks as outlined in the handout provided at the time of discharge. I have provided prescriptions for decreasing doses of the nicotine patch. Please use 14 mg daily for 2 weeks and then 7 mg daily for 2 weeks. [employer] has good information available on the Internet. You can also talk to your regular doctor at your follow-up next week about additional steps to quit smoking. - Discharge Plan *PRESCRIPTION DRUG MONITORING PROGRAM REVIEWED*: Not Applicable *COPY OF PRESCRIPTION DRUG MONITORING REPORT IN PATIENT GEORGINA: Not Applicable Prescriptions/Med Rec: Azithromycin 500 mg PO DAILY #4 tablet Nicotine [Habitrol] 7 mg TOP DAILY #14 patch.td24 Nicotine [Habitrol] 14 mg TOP DAILY #14 patch predniSONE [Prednisone] 40 mg PO DAILY #8 tablet Tobacco Cessation Medication: Prescription Given Home Medications: Home Meds Albuterol Sulfate 1 ampule NEB ASDIRECTED PRN 04/12/19 [History] Albuterol [Ventolin HFA] 2 puff IN Q4H PRN 04/12/19 [History] Fluticasone Propion/Salmeterol [Advair Hfa 230-21 Mcg Inhaler] 2 puff IN BID 04/12/19 [History] Azithromycin 500 mg PO DAILY #4 tablet 05/23/20 [Rx] Nicotine [Habitrol] 7 mg TOP DAILY #14 patch.td24 05/23/20 [Rx] Nicotine [Habitrol] 14 mg TOP DAILY #14 patch 05/23/20 [Rx] predniSONE [Prednisone] 40 mg PO DAILY #8 tablet 05/23/20 [Rx] Oxygen Therapy Mode: Room Air Patient Handouts: Health Risks of Smoking, Azithromycin tablets, Steps to Quit Smoking, Community-Acquired Pneumonia, Adult, [id number] Referrals: Luis Alfredo Pollock MD [Physician] - (1 week - F/U hospital stay for asthma exacerbation, discuss referral to [employer]person [employer] ) - Discharge Summary/Plan Comment DC Time >30 min.: Yes (45-extensive counseling about tobacco cessation ) - Patient Data Vitals - Most Recent: Last Vital Signs Temp 36.6 C 05/23/20 09:00 Pulse 86 05/23/20 09:00 Resp 20 05/23/20 09:00 BP 124/63 05/23/20 09:00 Pulse Ox 96 05/23/20 09:00 Weight - Most Recent: 96.026 kg I&O - Last 24 hours: Intake & Output 05/22/20 05/23/20 05/23/20 22:59 06:59 14:59 Intake Total 660 Output Total 700 200 Balance -700 460 Lab Results - Last 24 hrs: Laboratory Results - last 24 hr 05/23/20 05/23/20 05/23/20 Range/Units 01:12 01:12 01:12 WBC 19.1 H (4.5-11.0) K/uL RBC 4.56 (3.30-5.50) M/uL Hgb 13.0 (12.0-15.0) g/dL Hct 38.7 (36.0-48.0) % MCV 85 (80-98) fL MCH 29 (27-31) pg MCHC 34 (32-36) % Plt Count 280 (150-400) K/uL Neut % (Auto) 79 H (36-66) % Lymph % (Auto) 9 L (24-44) % [place] % (Auto) 7 H (2-6) % Eos % (Auto) 4 (2-4) % Baso % (Auto) 0 (0-1) % PT 10.7 (9.5-12.0) sec INR 0.98 (0.80-1.20) APTT 27.2 (27.0-36.0) sec Puncture Site ABG pH (7.350-7.450) ABG pCO2 (35.0-42.0) mmHg ABG pO2 (75.0-100.0) mmHg ABG HCO3 (22.0-26.0) mmol/L ABG Total CO2 (21.0-25.0) mmol/L ABG O2 Saturation (95.0-98.0) % ABG O2 Content (15.0-23.0) %vol ABG Base Excess mm/L ABG Hemoglobin (12.0-16.0) g/dL ABG Oxyhemoglobin % ABG Carboxyhemoglobin (0.0-1.6) % ABG Methemoglobin % [employer] Test O2 Delivery Device Oxygen Flow Rate L Sodium 143 (140-148) mmol/L Potassium 4.2 (3.6-5.2) mmol/L Chloride 105 (100-108) mmol/L Carbon Dioxide 25 (21-32) mmol/L Anion Gap 13.4 (5.0-14.0) mmol/L BUN 16 (7-18) mg/dL Creatinine 0.7 (0.6-1.0) mg/dL Est Cr Clr Drug Dosing 105.16 mL/min Estimated GFR (MDRD) > 60 (>60) Glucose 98 (74-106) mg/dL Calcium 9.1 (8.5-10.1) mg/dL C-Reactive Protein 0.36 H (0.0-0.3) mg/dL Urine Color (YELLOW) Urine Appearance (CLEAR) Urine pH (5.0-8.0) Ur Specific [place] (1.008-1.030) Urine Protein (NEGATIVE) mg/dL Urine Glucose (UA) (NEGATIVE) mg/dL Urine Ketones (NEGATIVE) mg/dL Urine Occult Blood (NEGATIVE) Urine Nitrite (NEGATIVE) Urine Bilirubin (NEGATIVE) Urine Urobilinogen (0.2-1.0) EU/dL Ur Leukocyte Esterase (NEGATIVE) Urine RBC (0-5) Urine WBC (0-5) Ur Epithelial Cells Amorphous Sediment Urine Bacteria Urine Mucus Urine HCG, Qual Influenza Type A RNA (NEGATIVE) RSV RNA (INAAT) (NEGATIVE) Influenza Type B RNA (NEGATIVE) SARS-CoV-2 RNA (JAYDA) (NEGATIVE) 05/23/20 05/23/20 05/23/20 Range/Units 01:56 02:00 02:21 WBC (4.5-11.0) K/uL RBC (3.30-5.50) M/uL Hgb (12.0-15.0) g/dL Hct (36.0-48.0) % MCV (80-98) fL MCH (27-31) pg MCHC (32-36) % Plt Count (150-400) K/uL Neut % (Auto) (36-66) % Lymph % (Auto) (24-44) % [place] % (Auto) (2-6) % Eos % (Auto) (2-4) % Baso % (Auto) (0-1) % PT (9.5-12.0) sec INR (0.80-1.20) APTT (27.0-36.0) sec Puncture Site Rt radial Rt radial ABG pH 6.928 L* 6.908 L* (7.350-7.450) ABG pCO2 103.0 H* 99.7 H* (35.0-42.0) mmHg ABG pO2 40.6 L* 101.0 H (75.0-100.0) mmHg ABG HCO3 20.5 L 18.8 L (22.0-26.0) mmol/L ABG Total CO2 21.3 19.6 L (21.0-25.0) mmol/L ABG O2 Saturation 38.7 L 89.2 L (95.0-98.0) % ABG O2 Content 7.8 L 17.4 (15.0-23.0) %vol ABG Base Excess -16.0 -17.5 mm/L ABG Hemoglobin 14.4 13.9 (12.0-16.0) g/dL ABG Oxyhemoglobin 38.3 88.8 % ABG Carboxyhemoglobin < 0.5 < 0.5 (0.0-1.6) % ABG Methemoglobin 0.9 0.7 % [place] Test Pass Pass O2 Delivery Device Room air Resuscitation bag Oxygen Flow Rate L Sodium (140-148) mmol/L Potassium (3.6-5.2) mmol/L Chloride (100-108) mmol/L Carbon Dioxide (21-32) mmol/L Anion Gap (5.0-14.0) mmol/L BUN (7-18) mg/dL Creatinine (0.6-1.0) mg/dL Est Cr Clr Drug Dosing mL/min Estimated GFR (MDRD) (>60) Glucose (74-106) mg/dL Calcium (8.5-10.1) mg/dL C-Reactive Protein (0.0-0.3) mg/dL Urine Color (YELLOW) Urine Appearance (CLEAR) Urine pH (5.0-8.0) Ur Specific [place] (1.008-1.030) Urine Protein (NEGATIVE) mg/dL Urine Glucose (UA) (NEGATIVE) mg/dL Urine Ketones (NEGATIVE) mg/dL Urine Occult Blood (NEGATIVE) Urine Nitrite (NEGATIVE) Urine Bilirubin (NEGATIVE) Urine Urobilinogen (0.2-1.0) EU/dL Ur Leukocyte Esterase (NEGATIVE) Urine RBC (0-5) Urine WBC (0-5) Ur Epithelial Cells Amorphous Sediment Urine Bacteria Urine Mucus Urine HCG, Qual Influenza Type A RNA Negative (NEGATIVE) RSV RNA (INAAT) Negative (NEGATIVE) Influenza Type B RNA Negative (NEGATIVE) SARS-CoV-2 RNA (JAYDA) Negative (NEGATIVE) 05/23/20 05/23/20 05/23/20 Range/Units 03:07 06:09 06:09 WBC (4.5-11.0) K/uL RBC (3.30-5.50) M/uL Hgb (12.0-15.0) g/dL Hct (36.0-48.0) % MCV (80-98) fL MCH (27-31) pg MCHC (32-36) % Plt Count (150-400) K/uL Neut % (Auto) (36-66) % Lymph % (Auto) (24-44) % [place] % (Auto) (2-6) % Eos % (Auto) (2-4) % Baso % (Auto) (0-1) % PT (9.5-12.0) sec INR (0.80-1.20) APTT (27.0-36.0) sec Puncture Site Rt radial ABG pH 7.384 (7.350-7.450) ABG pCO2 35.0 (35.0-42.0) mmHg ABG pO2 94.0 (75.0-100.0) mmHg ABG HCO3 20.4 L (22.0-26.0) mmol/L ABG Total CO2 18.4 L (21.0-25.0) mmol/L ABG O2 Saturation 96.9 (95.0-98.0) % ABG O2 Content 17.2 (15.0-23.0) %vol ABG Base Excess -3.5 mm/L ABG Hemoglobin 12.7 (12.0-16.0) g/dL ABG Oxyhemoglobin 95.6 % ABG Carboxyhemoglobin 0.7 (0.0-1.6) % ABG Methemoglobin 0.6 % [employer] Test Pass O2 Delivery Device Hi flow nasal cannu Oxygen Flow Rate 10.0 L Sodium (140-148) mmol/L Potassium (3.6-5.2) mmol/L Chloride (100-108) mmol/L Carbon Dioxide (21-32) mmol/L Anion Gap (5.0-14.0) mmol/L BUN (7-18) mg/dL Creatinine (0.6-1.0) mg/dL Est Cr Clr Drug Dosing mL/min Estimated GFR (MDRD) (>60) Glucose (74-106) mg/dL Calcium (8.5-10.1) mg/dL C-Reactive Protein (0.0-0.3) mg/dL Urine Color Yellow (YELLOW) Urine Appearance Clear (CLEAR) Urine pH 5.5 (5.0-8.0) Ur Specific [place] 1.015 (1.008-1.030) Urine Protein Trace H (NEGATIVE) mg/dL Urine Glucose (UA) Negative (NEGATIVE) mg/dL Urine Ketones Negative (NEGATIVE) mg/dL Urine Occult Blood Negative (NEGATIVE) Urine Nitrite Negative (NEGATIVE) Urine Bilirubin Negative (NEGATIVE) Urine Urobilinogen 0.2 (0.2-1.0) EU/dL Ur Leukocyte Esterase Negative (NEGATIVE) Urine RBC 0-5 (0-5) Urine WBC 0-5 (0-5) Ur Epithelial Cells Not seen Amorphous Sediment Rare Urine Bacteria Rare Urine Mucus Not seen Urine HCG, Qual Negative Influenza Type A RNA (NEGATIVE) RSV RNA (INAAT) (NEGATIVE) Influenza Type B RNA (NEGATIVE) SARS-CoV-2 RNA (JAYDA) (NEGATIVE) Med Orders - Current: Current Medications Acetaminophen (Acetaminophen 325 Mg Tab) 650 mg PO Q4H PRN PRN Reason: Pain (Mild 1-3)/fever Albuterol (Albuterol 0.083% 2.5 Mg/3 Ml Neb Soln) 2.5 mg NEB Q4H PRN PRN Reason: Shortness Of Breath/wheezing Albuterol/Ipratropium (Albuterol/Ipratropium 3.0-0.5 Mg/3 Ml Neb Soln) 3 ml NEB QIDRT JOSEPH Azithromycin (Azithromycin 250 Mg Tab) 500 mg PO ONETIME ONE Stop: 05/23/20 10:01 Diphenhydramine HCl (Diphenhydramine 25 Mg Cap) 25 mg PO BEDTIME PRN PRN Reason: Insomnia Docusate Sodium (Docusate Sodium 100 Mg Cap) 100 mg PO BID PRN PRN Reason: Constipation Sodium Chloride (Normal Saline) 1,000 mls @ 125 mls/hr IV ASDIRECTED [facility] Lorazepam (Lorazepam 2 Mg/Ml Sdv) 1 mg IV Q6H PRN PRN Reason: Nausea/Vomiting Morphine Sulfate (Morphine 2 Mg/Ml Syringe) 2 mg IVPUSH Q2H PRN PRN Reason: Pain (severe 7-10) Nicotine (Nicotine 14 Mg/24 Hr Patch) 14 mg TRDERM DAILY [facility] Last Admin: 05/23/20 04:50 Dose: 14 mg Documented by: Ondansetron HCl (Ondansetron 4 Mg Tab.Dis) 4 mg PO Q6H PRN PRN Reason: Nausea able to take PO Ondansetron HCl (Ondansetron 4 Mg/2 Ml Sdv) 4 mg IV Q4H PRN PRN Reason: Nausea/Vomiting Last Admin: 05/23/20 06:02 Dose: 4 mg Documented by: Oxycodone HCl (Oxycodone 5 Mg Tab) 5 mg PO Q4H PRN PRN Reason: Pain (moderate 4-6) Prednisone (Prednisone 20 Mg Tab) 40 mg PO ONETIME ONE Stop: 05/23/20 10:01 Discontinued Medications Albuterol/Ipratropium (Albuterol/Ipratropium 3.0-0.5 Mg/3 Ml Neb Soln) 3 ml NEB ONETIME ONE Stop: 05/23/20 01:01 Last Admin: 05/23/20 01:11 Dose: 3 ml Documented by: Albuterol/Ipratropium (Albuterol/Ipratropium 3.0-0.5 Mg/3 Ml Neb Soln) 3 ml NEB ONETIME ONE Stop: 05/23/20 01:45 Last Admin: 05/23/20 03:22 Dose: 3 ml Documented by: Albuterol/Ipratropium (Albuterol/Ipratropium 3.0-0.5 Mg/3 Ml Neb Soln) 3 ml NEB QID [facility] Last Admin: 05/23/20 05:53 Dose: 3 ml Documented by: Diphenhydramine HCl (Diphenhydramine 50 Mg/Ml Sdv) 50 mg IVPUSH ONETIME ONE Stop: 05/23/20 02:40 Last Admin: 05/23/20 02:42 Dose: 50 mg Documented by: Diphenhydramine HCl (Diphenhydramine 50 Mg/Ml Sdv) Confirm Administered Dose 50 mg .ROUTE .STK-MED ONE Stop: 05/23/20 02:41 Lidocaine HCl/Dextrose (Lidocaine 2 Gm/D5w 500 Ml) Confirm Administered Dose 2 gm in 500 mls @ as directed .ROUTE .STK-MED ONE Stop: 05/23/20 02:06 Last Admin: 05/23/20 03:26 Dose: Not Given Documented by: Sodium Chloride (Normal Saline) 100 mls @ 4 mls/sec IV ASDIRECTED STA Stop: 05/23/20 02:13 Last Admin: 05/23/20 02:39 Dose: 4 mls/sec Documented by: Levofloxacin/Dextrose 750 mg/ (Premix) 150 mls @ 100 mls/hr IV ONETIME ONE Stop: 05/23/20 04:46 Last Admin: 05/23/20 03:21 Dose: 100 mls/hr Documented by: Levofloxacin/Dextrose 500 mg/ (Premix) 100 mls @ 100 mls/hr IV Q24H JOSEPH Iopamidol (Iopamidol 755 Mg/Ml 100 Ml Bottle) 100 ml IV . DIRECTED STA Stop: 05/23/20 02:13 Last Admin: 05/23/20 02:39 Dose: 100 ml Documented by: Lidocaine HCl (Lidocaine 4% Top Soln 50 Ml Bottle) Confirm Administered Dose 50 ml .ROUTE .STK-MED ONE Stop: 05/23/20 02:05 Last Admin: 05/23/20 03:27 Dose: Not Given Documented by: Lidocaine HCl (Lidocaine 4% 5 Ml Amp) Confirm Administered Dose 5 ml .ROUTE .STK-MED ONE Stop: 05/23/20 02:07 Last Admin: 05/23/20 03:28 Dose: Not Given Documented by: Lidocaine HCl (Lidocaine 2% 20 Ml Mdv) Confirm Administered Dose 20 ml .ROUTE .STK-MED ONE Stop: 05/23/20 02:08 Last Admin: 05/23/20 03:27 Dose: Not Given Documented by: Lidocaine HCl (Lidocaine 4% 5 Ml Amp) 5 ml NEB ONETIME ONE Stop: 05/23/20 03:22 Last Admin: 05/23/20 03:28 Dose: Not Given Documented by: Lorazepam (Lorazepam 1 Mg Tab) 1 mg PO ONETIME ONE Stop: 05/23/20 01:45 Last Admin: 05/23/20 03:19 Dose: Not Given Documented by: Methylprednisolone Sodium Succinate (Methylprednisolone Sodium Succinate 125 Mg/2 Ml Sdv) 125 mg IM ONETIME ONE Stop: 05/23/20 01:01 Last Admin: 05/23/20 01:11 Dose: 125 mg Documented by: Methylprednisolone Sodium Succinate (Methylprednisolone Sodium Succinate 40 Mg/1 Ml Sdv) 40 mg IVPUSH Q6H JOSEPH Last Admin: 05/23/20 05:53 Dose: 40 mg Documented by: Nicotine (Nicotine 14 Mg/24 Hr Patch) Confirm Administered Dose 14 mg .ROUTE .STK-MED ONE Stop: 05/23/20 04:47 Last Admin: 05/23/20 04:51 Dose: Not Given Documented by: Ondansetron HCl (Ondansetron 4 Mg Tab.Dis) 4 mg PO ONETIME ONE Stop: 05/23/20 01:38 Last Admin: 05/23/20 03:18 Dose: Not Given Documented by: Rocuronium [place] (Rocuronium 50 Mg/5 Ml Vial) Confirm Administered Dose 50 mg .ROUTE .STK-MED ONE Stop: 05/23/20 01:59 Sodium Chloride (Sodium Chloride 0.9% Inhalation Soln 3 Ml Neb) Confirm Administered Dose 15 ml .ROUTE .STK-MED ONE Stop: 05/23/20 02:11 Last Admin: 05/23/20 03:26 Dose: Not Given Documented by: Sodium Chloride (Sodium Chloride 0.9% Inhalation Soln 3 Ml Neb) 3 ml INH ONETIME ONE Stop: 05/23/20 03:24 Last Admin: 05/23/20 03:27 Dose: Not Given Documented by:
--- NOTE | 2020-05-23 09:49 | CR ---
CHEST: 2 view CLINICAL HISTORY:Dyspnea and wheezing COMPARISON:2020 FINDINGS: The heart size, pulmonary vascularity and hilar structures are normal. No infiltrate effusion or pneumothorax is seen. IMPRESSION: No acute cardiopulmonary process.
[2020-05-23] MEDS ORDERED: Azithromycin 250 MG Tab PO ONE (10:00)
[2020-05-23] MEDS ORDERED: predniSONE 20 MG Tab PO ONE (10:00)
[2020-05-23] MEDS ORDERED: Levofloxacin/Dextrose 5%-Water 500 MG in Premix Bag 1 BAG IV SCH (21:00)
== END 2020-05-23 11:01 | disposition home or self-care (01) | DRG 193 ==
LOC: JP.ED 00:42 → JP.ICU 03:52
PROVIDERS: ADMIT Internal Medicine; ATTEND Internal Medicine
PROC: 5A0935A Assistance with Respiratory Ventilation, Less than 24 Consecutive Hours, High Flow/Velocity Cannula (ICD-10-PCS; principal; 2020-05-23)
DX: J18.9 Pneumonia, unspecified organism (principal); J96.01 Acute respiratory failure with hypoxia; J96.02 Acute respiratory failure with hypercapnia; J45.52 Severe persistent asthma with status asthmaticus; F17.210 Nicotine dependence, cigarettes, uncomplicated; F41.0 Panic disorder [episodic paroxysmal anxiety]; F90.9 Attention-deficit hyperactivity disorder, unspecified type; F32.9 Major depressive disorder, single episode, unspecified; Z20.822 Contact with and (suspected) exposure to COVID-19; Z79.51 Long term (current) use of inhaled steroids
CPT/HCPCS: 0241U; 36415; 36600; 71046; 71046-26; 71275; 80048; 81001; 81025; 82803; 85025; 85610; 85730; 86140; 94640; 96365; 96372; 96375; 99285-25; A9270-GY; J1200; J1956; J2405; J2920; J2930; J7512; J7620-GY; Q9967

== ENCOUNTER 2025-02-06 09:14 | Emergency (ER) | payer BC ==
[2025-02-06] MEDS: Ondansetron 4 MG Tab.DIS PO ONE (10:22)
[2025-02-06] MEDS: LORazepam 2 MG/ML SDV IVPUSH ONE (11:10)
[2025-02-06] MEDS: Ondansetron 4 MG/2 ML SDV IVPUSH ONE (11:10)
[2025-02-06] MEDS: Alum Hydrox/Mag Hydrox/Simeth 15 ML, Lidocaine 2% 15 ML PO ONE (11:15)
[2025-02-06 12:27] LABS: BASOPHILS PERCENT AUTO 0.2 % (0.1-1.3); EOSINOPHILS ABSOLUTE AUTO 0.11 K/uL (0.00-0.40); EOSINOPHILS PERCENT AUTO 1.1 % (0.0-5.4); IMMATURE GRAN ABSOLUTE AUTO 0.04 K/uL (0.00-0.23); IMMATURE GRAN PERCENT AUTO 0.4 % (0.0-0.7); LYMPHOCYTES ABSOLUTE AUTO 0.92 K/uL (0.8-3.3); LYMPHOCYTES PERCENT AUTO 8.9 % (11.4-47.7); MONOCYTES ABSOLUTE AUTO 0.80 K/uL (0.20-0.90); MONOCYTES PERCENT AUTO 7.7 % (3.3-12.6); NEUTROPHILS ABSOLUTE AUTO 8.46 K/uL (1.0-7.6); NEUTROPHILS PERCENT AUTO 81.7 % (40.0-78.1); PLATELET COUNT,PLT 255 K/uL (130-375); RED BLOOD CELL COUNT 3.98 M/uL (3.77-5.24); WHITE BLOOD CELL COUNT,WBC 10.4 K/uL (3.2-11.0)
[2025-02-06 12:28] LABS: BASOPHILS ABSOLUTE AUTO 0.02 K/uL (0.00-0.10)
[2025-02-06 12:47] LABS: BASE EXCESS VENOUS -0.9 mm/L; BICARBONATE,VENOUS 24.2 mmol/L; O2 SATURATION VENOUS 47.9; OXYHEMOGLOBIN 46.5 %; PCO2 VENOUS 44.2 mm/Hg; PH,VENOUS 7.357 (7.350-7.450); TOTAL HEMOGLOBIN 12.4 g/dL (12.0-16.0)
[2025-02-06 12:49] LABS: PO2 VENOUS 31.1 mm/Hg
[2025-02-06 14:27] LABS: TROPONIN I HIGH SENSITIVITY 3.9 pg/mL (<=60.3)
== END 2025-02-06 15:22 | disposition home or self-care (01) ==
LOC: JP.ED 09:14
DX: F41.0 Panic disorder [episodic paroxysmal anxiety] (principal); J45.909 Unspecified asthma, uncomplicated; F17.200 Nicotine dependence, unspecified, uncomplicated; Z79.899 Other long term (current) drug therapy
CPT/HCPCS: 36415; 71046; 80053; 82803; 84484; 85025; 85379; 86140; 93005; 96374; 96375; 99285; J2060; J2405; J2470; J3490; Q0162; 93010; 99284; A9270-GY